=== PATIENT | female | born 1980 | race Caucasian/White ===

== ENCOUNTER 2020-01-24 14:27 | Emergency (ER) | payer SELFPAY ==
--- NOTE | 2020-01-24 15:20 | XRAY Report ---
PROCEDURE: Hand 3 View RT INDICATIONS: Trauma TECHNIQUE: 3 views of the hand(s) acquired. COMPARISON: None FINDINGS: Bones: No fractures or dislocations. No suspicious bony lesions. Soft tissues: No suspicious soft tissue calcifications. IMPRESSION: No fracture or other acute finding. Reviewed by: Danial Carbone MD on 01/24/2020 3:18 PM PDT Approved by: Danial Carbone MD on 01/24/2020 3:18 PM PDT Station ID: [id number]
--- NOTE | 2020-01-24 15:31 | ED Physician Documentation ---
History of Present Illness - Stated complaint Stated Complaint: RIGHT HAND INJ - Chief complaint Chief Complaint: Trauma Ext - History obtained from History obtained from: Patient - Additonal information Additional information: Patient comes emergency department complaining of right hand pain after falling a few days ago and landing on her hand. Patient states that she developed swelling and bruising in that her thenar eminence area has been hurting, and she wanted to make sure that there is no more serious injury. Patient denies any other injuries. She states that her wrist does not really hurt and that it is more the area of the hand. No history of surgical procedure to the wrist or hand. No other complaints at this time. Review of Systems Ten Systems: 10 systems reviewed and negative Constitutional: reports: Reviewed and negative Eyes: reports: Reviewed and negative Ears: reports: Reviewed and negative Nose: reports: Reviewed and negative Throat: reports: Reviewed and negative Cardiac: reports: Reviewed and negative Respiratory: reports: Reviewed and negative GI: reports: Reviewed and negative : reports: Reviewed and negative Skin: reports: Reviewed and negative Musculoskeletal: reports: Extremity pain, Extremity swelling Neurologic: reports: Reviewed and negative Psychiatric: reports: Reviewed and negative Endocrine: reports: Reviewed and negative Immunocompromised: reports: Reviewed and negative PD PAST MEDICAL HISTORY - Past Surgical History Past Surgical History: No - Present Medications Home Medications: Ambulatory Orders Medication Instructions Recorded Confirmed Cyclobenzaprine [Flexeril] 10 mg PO TID PRN #20 tablet 06/22/15 HYDROcod/ACETAM 5/325 [[place] 5/325] 1 - 2 ea PO Q6H PRN #15 tablet 06/22/15 - Allergies Allergies/Adverse Reactions: Allergies Allergy/AdvReac Type Severity Reaction Status Date / Time No Known Drug Allergies Allergy Verified 01/24/20 14:46 - Social History Does the pt smoke?: No Smoking Status: Never smoker Does the pt drink ETOH?: Yes Does the pt have substance abuse?: No PD ED PE NORMAL - Vitals Vital signs reviewed: Yes - General General: Alert and oriented X 3, No acute distress - HEENT HEENT: Atraumatic, PERRL, EOMI, Moist mucous membranes - Neck Neck: Supple, no meningeal sign - Cardiac Cardiac: Strong equal pulses - Respiratory Respiratory: No respiratory distress - Derm Derm: Warm and dry, Other - Extremities Extremities: No deformity, Other (Patient has mild edema and contusion of her right thenar eminence, with tenderness palpation. No dorsal tenderness. No tenderness of the thumb itself. No tenderness over the carpal bones of the wrist. No snuffbox tenderness). No: Normal ROM s pain (Patient is able to move her thumb but complains of pain in the right thenar eminence.) - Neuro Neuro: Alert and oriented X 3 - Psych Psych: Normal mood, Normal affect Results - Vitals Vitals: Vital Signs - 24 hr 01/24/20 14:43 Temperature 36.7 C Heart Rate 81 Respiratory 16 Rate Blood Pressure 150/101 H O2 Saturation 97 Oxygen O2 Source Simple Mask - Rads (name of study) R hand xr Radiology: Final report received, EMP read indepedently, See rad report (neg) PD MEDICAL DECISION MAKING - ED course Complexity details: reviewed results, re-evaluated patient, considered differential, d/w patient ED course: Patient was worked up with a right hand x-ray, which was found to be negative. The patient was offered an Alberto wrap for support. We have discussed home management of symptoms as well as usual indications for return. Departure - Departure Disposition: 01 Home, Self Care Clinical Impression: Hand sprain Qualifiers: Encounter type: initial encounter Laterality: right Qualified Code(s): S63.91XA - Sprain of unspecified part of right wrist and hand, initial encounter Condition: Stable Instructions: ED Sprain Hand Comments: Your x-ray shows no broken bones. Most likely, you have sprained your hand at the base of your thumb. You have been placed in an Alberto wrap for extra support and should use ice and elevation to help with the discomfort. Auqf-eii-pomoexu medicines such as ibuprofen and Tylenol are also helpful. You may follow-up with your primary care physician as needed.
[2020-01-24 15:52] VITALS: BP 148/98
== END 2020-01-24 15:51 | disposition home or self-care (01) ==
LOC: ED 14:27
DX: S63.91XA Sprain of unspecified part of right wrist and hand, initial encounter (principal); S60.221A Contusion of right hand, initial encounter; W18.30XA Fall on same level, unspecified, initial encounter
CPT/HCPCS: 99282; 99283

== ENCOUNTER 2022-04-15 08:35 | Emergency (ER) | payer OTHER ==
[2022-04-15 08:53] LABS: BASOPHILS # (AUTO) 0.1 10^3/uL (0.0-0.1); BASOPHILS % (AUTO) 1.1 %; EOSINOPHILS # (AUTO) 0.2 10^3/uL (0.0-0.7); EOSINOPHILS % (AUTO) 2.8 %; HCT - HEMATOCRIT 42.3 % (37.0-47.0); HGB - HEMOGLOBIN 15.1 g/dL (12.0-16.0); LYMPHOCYTES % (AUTO) 17.6 %; MEAN CORPUSCULAR HEMOGLOBIN 32.1 pg (27.0-31.0); MEAN CORPUSCULAR HGB CONC 35.7 g/dL (32.0-36.0); MEAN PLATELET VOLUME 10.3 fL (7.9-10.8); MONOCYTES # (AUTO) 0.4 10^3/uL (0.0-1.0); MONOCYTES % (AUTO) 7.7 %; NEUTROPHILS # (AUTO) 3.8 10^3/uL (1.5-6.6); NEUTROPHILS % (AUTO) 70.6 %; PLT - PLATELET COUNT 178 10^3/uL (130-450); RED CELL DISTRIBUTION WIDTH 12.4 % (12.0-15.0); WHITE BLOOD COUNT 5.4 x10^3/uL (4.8-10.8)
[2022-04-15 09:06] LABS: ALBUMIN 4.1 g/dL (3.2-5.5); ALBUMIN/GLOBULIN RATIO 1.2 (1.0-2.2); BILIRUBIN,TOTAL 1.5 mg/dL (0.2-1.0); CALCIUM 8.8 mg/dL (8.5-10.3); CREATININE 0.8 mg/dL (0.4-1.0); TOTAL PROTEIN 7.6 g/dL (6.7-8.2)
[2022-04-15 09:43] LABS: GLUCOSE, URINE (UA) NEGATIVE (NEGATIVE); KETONES,URINE (UA) 15 mg/dL (NEGATIVE); LEUKOCYTE ESTERASE, URINE NEGATIVE (NEGATIVE); NITRITE,URINE NEGATIVE (NEGATIVE); OCCULT BLOOD,URINE NEGATIVE (NEGATIVE); PH,URINE 7.5 PH (5.0-7.5); PROTEIN,URINE NEGATIVE (NEGATIVE); UROBILINOGEN,URINE 1 (NORMAL) E.U./dL (NORMAL)
[2022-04-15 09:44] LABS: CLARITY,URINE CLEAR (CLEAR)
[2022-04-15 09:45] LABS: BILIRUBIN,URINE NEGATIVE (NEGATIVE); HCG UR QUAL NEGATIVE; ICTOTEST,URINE NEGATIVE
[2022-04-15] MEDS ORDERED: ONDANSETRON 4 MG/2 ML VIAL IVP STA (11:31)
[2022-04-15] MEDS ORDERED: SODIUM CHLORIDE 0.9% 1,000 ML IV STA (11:31)
[2022-04-15] MEDS ORDERED: HYDROmorphone 1 MG/ML CARPUJECT IVP STA (11:31)
--- NOTE | 2022-04-15 11:33 | ED Physician Documentation ---
History of Present Illness - Stated complaint Stated Complaint: ABD PX - Chief complaint Chief Complaint: Abd Pain - Additonal information Additional information: 41-year-old female presents emergency department for evaluation of 36 hours pe rsistent right upper quadrant abdominal pain as well as nausea and vomiting. Reports that about 1 month ago she was seen at a hospital [facility] for similar and found to have gallstones. She was told to follow-up with a surgeon as an outpatient. She subsequently moved to the [place] and is not yet established with a primary provider nor a surgeon. Symptoms began 36 hours ago. Persistent right upper quadrant abdominal pain. Has been unable to keep any food or liquids down now for 24 hours. Denies fevers. No melena hematochezia. She does have a history of moderate alcohol use typically drinking about 1/5 of liquor a week. Denies tobacco use. No pertinent past surgical history. Review of Systems Constitutional: denies: Fever, Chills Throat: reports: Reviewed and negative Cardiac: reports: Reviewed and negative Respiratory: reports: Reviewed and negative GI: reports: Abdominal Pain, Nausea, Vomiting. denies: Diarrhea, Hematemesis, Bloody / black stool : reports: Reviewed and negative Skin: reports: Reviewed and negative PD PAST MEDICAL HISTORY - Past Surgical History Past Surgical History: No - Present Medications Home Medications: Ambulatory Orders Medication Instructions Recorded Confirmed HYDROcod/ACETAM 5/325 [[place] 5/325] 1 tablet PO BID PRN #10 tablet 04/15/22 Ibuprofen [Motrin] 1 tablet PO Q8H PRN 04/15/22 04/15/22 Ondansetron Odt [Zofran] 4 mg TL Q6H PRN #10 tablet 04/15/22 - Allergies Allergies/Adverse Reactions: Allergies Allergy/AdvReac Type Severity Reaction Status Date / Time No Known Drug Allergies Allergy Verified 04/15/22 08:40 - Social History Does the pt smoke?: No Smoking Status: Never smoker Does the pt drink ETOH?: Yes Does the pt have substance abuse?: No PD ED PE EXPANDED - General General: Alert, In Pain, Other (Morbidly obese) - Cardiac Cardiac: Regular Rate, Radial strong equal, Pedal strong equal, Cap refill < 2 sec - Respiratory Respiratory: Clear to ausultation rick. No: Distress, Labored - Abdomen Abdomen: Normal Bowel sounds, Tender to palpation, Rebound, Guarding (equivocal mcburney's), RUQ - Back Back: Normal exam - Derm Derm: Normal color, Warm and dry. No: Rash - Extremities Extremities: Normal. No: Deformity, Tenderness - Neuro Neuro: Alert and Oriented X 3, CNII-XII intact - GCS Eye Opening: Spontaneous Motor: Obeys Commands Verbal: Oriented Total: 15 Results - Vitals Vitals: Vital Signs - 24 hr 04/15/22 04/15/22 08:38 11:42 Temperature 36.5 C Heart Rate 97 82 Respiratory 16 16 Rate Blood Pressure 170/106 H O2 Saturation 97 99 Oxygen O2 Source Room air - Labs Labs: Laboratory Tests 04/15/22 04/15/22 04/15/22 08:50 08:50 09:35 WBC 5.4 RBC 4.70 Hgb 15.1 Hct 42.3 MCV 90.0 MCH 32.1 H MCHC 35.7 RDW 12.4 Plt Count 178 MPV 10.3 Neut # (Auto) 3.8 Lymph # (Auto) 1.0 L Alfalfa # (Auto) 0.4 Eos # (Auto) 0.2 Baso # (Auto) 0.1 Absolute Nucleated RBC 0.00 Nucleated RBC % 0.0 Sodium 137 Potassium 4.0 Chloride 104 Carbon Dioxide 24 Anion Gap 9.0 BUN 20 Creatinine 0.8 Estimated GFR (MDRD) 78 L Glucose 113 H Calcium 8.8 Total Bilirubin 1.5 H AST 53 H ALT 69 H Alkaline Phosphatase 62 Total Protein 7.6 Albumin 4.1 Globulin 3.5 Albumin/Globulin Ratio 1.2 Lipase 30 Urine Color DARK YELLOW Urine Clarity CLEAR Urine pH 7.5 Ur Specific [place] 1.010 Urine Protein NEGATIVE Urine Glucose (UA) NEGATIVE Urine Ketones 15 H Urine Occult Blood NEGATIVE Urine Nitrite NEGATIVE Urine Bilirubin NEGATIVE Urine Urobilinogen 1 (NORMAL) Ur Leukocyte Esterase NEGATIVE Ur Microscopic Review NOT INDICATED Urine Culture Comments NOT INDICATED Urine HCG, Qual 04/15/22 09:35 WBC RBC Hgb Hct MCV MCH MCHC RDW Plt Count MPV Neut # (Auto) Lymph # (Auto) Alfalfa # (Auto) Eos # (Auto) Baso # (Auto) Absolute Nucleated RBC Nucleated RBC % Sodium Potassium Chloride Carbon Dioxide Anion Gap BUN Creatinine Estimated GFR (MDRD) Glucose Calcium Total Bilirubin AST ALT Alkaline Phosphatase Total Protein Albumin Globulin Albumin/Globulin Ratio Lipase Urine Color Urine Clarity Urine pH Ur Specific [place] Urine Protein Urine Glucose (UA) Urine Ketones Urine Occult Blood Urine Nitrite Urine Bilirubin Urine Urobilinogen Ur Leukocyte Esterase Ur Microscopic Review Urine Culture Comments Urine HCG, Qual NEGATIVE - Rads (name of study) abd US Radiology: Final report received (Cholelithiasis. Positive sonographic Rawls's without significant gallbladder wall thickening. May indicate developing cholecystitis. Hepatic steatosis. Gallbladder wall adenomyomatosis) Ct abd Radiology: Final report received (Cholelithiasis. Normal appendix. No evidence of urinary tract calcification or obstruction. Hepatic steatosis.) PD MEDICAL DECISION MAKING - ED course Complexity details: reviewed results, re-evaluated patient, considered differential, d/w patient, d/w oracle distribution consultant (Cecy Gille Surg) ED course: 41-year-old female presents emergency department for evaluation of persistent right upper quadrant abdominal pain with nausea and vomiting. Symptoms began more than a month ago was originally seen at an outlying hospital in the [facility]. Was told that she had gallstones and needed to follow-up with the surgeons as an outpatient. Over the last month she has had intermittent pain but this episode began about 24 hours ago. She has had 2 episodes of vomiting. No diarrhea. No fevers. Labs obtained today in the ER showed no leukocytosis. Her liver function test show a mildly elevated T bili at 1.5. Her AST and ALT are also mildly elevated in the 50s and 60s respectively. On exam she did have an equivocal Rawls's. Abdominal ultrasound showed Cielo lithiasis without secondary findings to suggest acute cholecystitis. CT of the abdomen showed similar. On exam the patient's symptoms are improved. I briefly discussed this case with our surgeon on-call. Given that the patient does not have findings of acute cholecystitis such as gallbladder wall thickening, pericholecystic fluid, fever or leukocytosis the decision is made to have her followed as an outpatient. She is advised a no fat no dairy diet. A limited prescription for analgesia and Zofran has been sent to the pharmacy. Emergent return precautions were discussed for worsening symptoms Departure - Departure Disposition: 01 Home, Self Care Clinical Impression: Abnormal LFTs (liver function tests), Adenomyomatosis of gallbladder Cholelithiasis Qualifiers: Cholelithiasis location: gallbladder Cholecystitis presence: without cholecystitis Biliary obstruction: without biliary obstruction Qualified Code(s): K80.20 - Calculus of gallbladder without cholecystitis without obstruction Condition: Stable Record reviewed to determine appropriate education?: Yes Instructions: ED Abdominal Pain Gallstone Poss Follow-Up: Cecilia Diaz MD [Provider Admit Priv/Credential] - Prescriptions: HYDROcod/ACETAM 5/325 [[place] 5/325] 1 tablet PO BID PRN #10 tablet PRN Reason: Pain Ondansetron Odt [Zofran] 4 mg TL Q6H PRN #10 tablet PRN Reason: Nausea / Vomiting Comments: Radha you are seen today in the emergency department for pain in your upper abdomen. The CT of your belly as well as the ultrasound of your abdomen do show that you have gallstones. However there are no findings to suggest acute cholecystitis which is a clinical condition in which the gallbladder typically needs to be removed. It is very important you follow-up with a surgeon as an outpatient. I have given you the name and phone number of Dr. Sales. You will need a referral to see her in office. Please work closely with a primary care doctor as well as your insurance to get this referral established. It is very important that you follow a close diet for your gallstones. In general you should avoid any fats whatsoever. No dairy, no cheese, no salad dressings or oils. You can eat chicken that is boiled or broiled only. No chicken skin, no fats or red meat. In the short-term I am sending a prescription for limited amount of hydrocodone as well as Zofran to the [facility] in [place]. You will likely need to have your gallbladder removed in the long-term. However this is best done when the gallbladder is not inflamed. If at any point you find that your pain is worsening, you have fevers, uncontrolled vomiting then you should return immediately to the emergency department.
--- NOTE | 2022-04-15 12:23 | Ultrasound Report ---
PROCEDURE: Abdomen Limited INDICATIONS: RUQ abd pain; n/v TECHNIQUE: Real-time focused scanning was performed of the abdomen, with image documentation. COMPARISON: None FINDINGS: Liver is enlarged measuring 18.3 cm and demonstrates diffusely increased echogenicity. Multiple calcu li within the gallbladder lumen. Positive sonographic Rawls's sign is present. Gallbladder wall padma ures 2 mm diameter. Common tail artifact within the gallbladder wall present. No biliary ductal dilat ation. Pancreas is within normal limits. Spleen and right kidney are within normal limits. Aorta and IVC are within normal limits. IMPRESSION: 1. Cholelithiasis. 2. Positive sonographic Rawls's sign without significant gallbladder wall thickening. Findings may i ndicate developing cholecystitis. Clinical correlation recommended. 3. Hepatic steatosis. 4. Gallbladder wall adenomyomatosis. Reviewed by: Mitesh Bermudez MD on 04/15/2022 12:21 PM PDT Approved by: Mitesh Bermudez MD on 04/15/2022 12:21 PM PDT Station ID: [id number]
--- NOTE | 2022-04-15 12:44 | CT Report ---
PROCEDURE: Abdomen/Pelvis WO INDICATIONS: RUQ abd pain; hx of gall stones TECHNIQUE: Noncontrast 5 mm thick sections acquired from the diaphragms to the symphysis. 5 mm coronal and sagi ttal reformats were then performed. For radiation dose reduction, the following was used: automated exposure control, adjustment of mA and/or kV according to patient size. COMPARISON: None. FINDINGS: Image quality: Excellent. ABDOMEN: Lung bases: Lung bases are clear. Heart size is normal. Solid organs: Liver is enlarged and demonstrates diffusely decreased density without focal mass by n oncontrast imaging. Spleen is within normal limits. Gallbladder demonstrates calculi within its lumen Pancreas is normal in contours. No adrenal nodules. Kidneys are normal in size, without hydroneph rosis or nephrolithiasis. Peritoneum and bowel: Small hiatal hernia. Unenhanced bowel loops demonstrate normal wall thickness a nd caliber. No free fluid or air. Normal appendix. Nodes and vessels: No retroperitoneal or mesenteric adenopathy by size criteria. Aorta and inferior vena cava are normal in caliber. Miscellaneous: No ventral hernias. PELVIS: Genitourinary: Bladder wall thickness is normal. Miscellaneous: No inguinal hernias or adenopathy. Bones: No suspicious bony lesions. No vertebral body compression fractures. IMPRESSION: 1. Cholelithiasis. 2. Normal appendix. 3. No evidence of urinary tract calcification, nor obstruction. 4. Hepatic steatosis. Reviewed by: Mitesh Bermudez MD on 04/15/2022 12:43 PM PDT Approved by: Mitesh Bermudez MD on 04/15/2022 12:43 PM PDT Station ID: [id number]
[2022-04-15 13:15] VITALS: BP 157/102
== END 2022-04-15 13:46 | disposition home or self-care (01) ==
LOC: ED 08:35
DX: K80.20 Calculus of gallbladder without cholecystitis without obstruction (principal); R94.5 Abnormal results of liver function studies
CPT/HCPCS: 36415; 74176; 76705; 80053; 81003; 81025; 83690; 85025; 96361; 96374; 96375; 99284; J1170; 81001; 87086

== ENCOUNTER 2022-08-20 11:11 | Outpatient (CLI) | payer OTHER ==
--- NOTE | 2022-08-30 09:50 | Mammography Report ---
BILATERAL DIGITAL SCREENING MAMMOGRAM 3D/2D: 08/20/2022 CLINICAL: Routine screening. No prior exams were available for comparison. There are scattered areas of fibroglandular density in both breasts (category b / 25%-50% glandular t issue). No significant masses, calcifications, or other findings are seen in either breast. IMPRESSION: NEGATIVE There is no mammographic evidence of malignancy. A 1 year screening mammogram is recommended. Based on the Tyrer Cuzick model (a risk assessment model) the patients lifetime risk is 12.6% and he r 10 year risk is 2.0%. According to the ACR, ACS, and NCCN guidelines, an annual breast MRI exam bharat ng with mammogram is recommended if the patients lifetime risk is 20% or greater. This exam was interpreted at Station ID: [id number]. NOTE: For mammograms, a report in lay terms will be sent to the patient. Approximately 15% of breast malignancies will not be visualized mammographically. In the management of a palpable breast mass, a negative mammogram must not discourage biopsy of a clinically suspicious lesion. Electronically Signed By: Danial Carbone M.D., jr/bethel:08/27/2022 16:05:42 ACR BI-RADS Category 1: Negative 3341F PARENCHYMAL PATTERN: (A) - The breast(s) demonstrate(s) scattered fibroglandular densities. BI-RADS CATEGORY: (1) - 1 RECOMMENDATION: (ANNUAL) - Recommend routine annual screening mammography. [id number] 1 year screening LATERALITY: (B)
== END 2022-08-20 11:12 | disposition home or self-care (01) ==
LOC: DI 11:11
DX: Z12.31 Encounter for screening mammogram for malignant neoplasm of breast (principal)

== ENCOUNTER 2023-03-17 11:18 | Day surgery (SDC) | payer OTHER ==
[2023-03-17] MEDS ORDERED: LACTATED RINGERS 1,000 ML IV ONE ×2 (11:24→16:46)
[2023-03-17] MEDS ORDERED: ceFAZolin 2 GM VIAL ONE (11:33)
[2023-03-17 11:49] LABS: HCG UR QUAL NEGATIVE
[2023-03-17] MEDS ORDERED: MIDAZOLAM 2 MG/2 ML VIAL ONE (12:17)
[2023-03-17] MEDS ORDERED: ROCURONIUM 50 MG/5 ML VIAL ONE ×2 (12:17→14:25)
[2023-03-17] MEDS ORDERED: fentaNYL 100 MCG/2 ML VIAL ONE ×4 (12:17→16:07)
[2023-03-17] MEDS ORDERED: PROPOFOL 200 MG/20 ML VIAL IVP ONE (12:17)
[2023-03-17] MEDS ORDERED: LIDOCAINE-PF 2% 10 ML AMP SUBQ ONE (12:17)
--- NOTE | 2023-03-17 12:50 | ANESTHESIA ---
Pre-Anesthesia VS, & Labs - Diagnosis chronic cholelithiasis - Procedure laparoscopic cholecystectomy Vital Signs: Temp Pulse Resp BP Pulse Ox O2 Flow Rate 36.1 C L 93 16 140/96 H 94 03/17/23 11:34 03/17/23 11:34 03/17/23 11:34 03/17/23 11:34 03/17/23 11:34 Height: 5 ft 8 in Weight (kg): 138 kg Body Mass Index: 46.2 BMI Classification: Morbidly Obese - NPO >8 hours - Is Patient ?: No - Lab Results Lab results reviewed: Yes Home Medications and Allergies Home Medications: Ambulatory Orders Acetaminophen [Tylenol] 650 mg PO Q6H PRN 03/09/23 Ibuprofen [Motrin] 600 mg PO Q6H PRN 03/09/23 Acetaminophen [Tylenol] 650 mg PO Q6H PRN 03/09/23 Ibuprofen [Motrin] 600 mg PO Q6H PRN 03/09/23 Allergies/Adverse Reactions: Allergies Allergy/AdvReac Type Severity Reaction Status Date / Time No Known Drug Allergies Allergy Verified 04/15/22 08:40 Anes History & Medical History - Anesthetic History Anesthesia Complications: reports: No previous complications Family history of Anesthesia Complications: Denies Family history of Malignant Hyperthermia: Denies - Medical History Cardiovascular: reports: None Pulmonary: reports: None Gastrointestinal: reports: Cholelithiasis Urinary: reports: None Neuro: reports: None Musculoskeletal: reports: None Endocrine/Autoimmune: reports: None Blood Disorders: reports: None Skin: reports: None Smoking Status: Never smoker Psychosocial: reports: No issues indicated, Cannabis (gummies daily) History of Cancer?: No Exam General: Alert, Oriented x3, Cooperative Dental: Dentures full Upper, Other (no teeth at bottom) Mouth Openin Fingerbreadth Neck Mobility: Normal Mallampati classification: II Thyromental Distance: 4-6 cm Respiratory: Lungs clear, Normal breath sounds, No respiratory distress Cardiovascular: Regular rate Neurological: Normal speech Mental/Cognitive Status: Alert/Oriented X3, Normal for patient Cognitive Status: Within normal limits Plan Anesthesia Type: General Consent for Procedure(s) Verified and Reviewed: Yes Code Status: Attempt Resuscitation ASA classification: 2-Mild systemic disease Is this case an emergency?: No
[2023-03-17] MEDS ORDERED: BUPIVACAINE 0.25% PF 30 ML VIAL ONE ×2 (12:56→14:18)
[2023-03-17] MEDS ORDERED: MORPHINE 2 MG/ML CARPUJECT IVP PRN (13:02)
[2023-03-17] MEDS ORDERED: ATROPINE ABBOJECT 1 MG/10 ML SYRINGE IVP PRN (13:02)
[2023-03-17] MEDS ORDERED: HYDROmorphone 0.5 MG/0.5 ML SYRINGE IVP PRN (13:02)
[2023-03-17] MEDS ORDERED: METOCLOPRAMIDE 10 MG/2 ML VIAL IVP PRN (13:02)
[2023-03-17] MEDS ORDERED: NALOXONE 0.4 MG/ML VIAL IVP PRN (13:02)
[2023-03-17] MEDS ORDERED: ePHEDrine 50 MG/ML VIAL IVP PRN (13:02)
[2023-03-17] MEDS ORDERED: ONDANSETRON 4 MG/2 ML VIAL IVP PRN ×2 (13:02→15:56)
--- NOTE | 2023-03-17 13:48 | HISTORY & PHYSICAL EXAMINATION ---
Chief Complaint - Chief Complaint Chief Complaint: upper abdominal pain History of Present Illness - History Obtained From Records Reviewed: yes History obtained from: pt Exam Limitations: none - History of Present Illness HPI Comment/Other: upper abdominal pain. getting worse. 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 : reports: None HEENT: reports: Chronic vision loss Psych: reports: None Musculoskeletal: reports: None Derm: reports: None MRSA Hx?: No Meds/Allgy - Home Medications Home Medications: Ambulatory Orders Medication Instructions Recorded Confirmed Acetaminophen [Tylenol] 650 mg PO Q6H PRN 03/09/23 03/09/23 Ibuprofen [Motrin] 600 mg PO Q6H PRN 03/09/23 03/09/23 - Allergies Allergies/Adverse Reactions: Allergies Allergy/AdvReac Type Severity Reaction Status Date / Time No Known Drug Allergies Allergy Verified 04/15/22 08:40 Review of Systems - Other Findings Other Findings: 10 pt ros as above otherwise unremarkable Exam - Vital Signs Vital Signs: Vital Signs x48h Temp Pulse Resp BP Pulse Ox 03/17/23 11:34 36.1 C L 93 16 140/96 H 94 - Physical Exam General Appearance: positive: No acute distress, Alert Eyes Bilateral: positive: PERRL, EOMI ENT: positive: No signs of dehydration Neck: positive: No JVD, Trachea midline Respiratory: positive: No respiratory distress Cardiovascular: positive: Regular rate & rhythm Abdomen: positive: Non-tender, No distention Neurologic/Psychiatric: positive: Oriented x3 Conclusion/Plan - Problem List (1) Chronic cholecystitis Conclusion/Plan: plan lap yoly. parq held and consent obtained - Lab Results Lab results reviewed: Yes
[2023-03-17] MEDS ORDERED: LACTATED RINGERS 1,000 ML IV SCH (14:00)
[2023-03-17] MEDS ORDERED: BUPIVACAINE 0.25% PF 30 ML VIAL SUBQ ONE (14:04)
[2023-03-17] MEDS ORDERED: ONDANSETRON 4 MG/2 ML VIAL ONE (14:08)
[2023-03-17] MEDS ORDERED: DEXAMETHASONE 4 MG/ML VIAL ONE (14:08)
[2023-03-17] MEDS ORDERED: HYDROmorphone 1 MG/ML CARPUJECT ONE ×2 (14:47→15:54)
[2023-03-17] MEDS ORDERED: SUGAMMADEX 200 MG/2 ML VIAL IVP ONE (14:51)
[2023-03-17] MEDS ORDERED: KETOROLAC 30 MG/ML VIAL ONE (15:10)
[2023-03-17] MEDS ORDERED: ACETAMINOPHEN 1,000 MG/100 ML 1,000 MG/100 ML BAG IV ONE (15:20)
[2023-03-17] MEDS ORDERED: LACTATED RINGERS 600 ML IV ONE (15:39)
[2023-03-17] MEDS ORDERED: HYDROcod/ACETAM 5/325 MG TABLET PO PRN (15:56)
[2023-03-17] MEDS: fentaNYL 100 MCG/2 ML VIAL IVP PRN ×2 (16:02→16:14)
--- NOTE | 2023-03-17 16:02 | OPERATIVE REPORT ---
Operative Report - General Procedure Date: 03/17/23 Planned Procedure: lap yoly Pre-Op Diagnosis: chronic cholecystitis Procedure Performed: lap yoly Post Op Diagnosis: chronic cholecystitis - Procedure Note Primary Surgeon: misa puente Anesthesia Technique: General ET tube, Local Pathology: gallbladder Estimated Blood Loss (mL): 10 Drain/Tube Type: Other (none) Indications: gallbladder pain Findings: as above. normal common hepatic duct seen duct of luschka present Complications: none - Other Other Information/Narrative: The patient was properly identified, brought to the operating room and placed in supine position. Sequential compression devices were placed. General endotracheal anesthesia was induced. The patient was prepped and draped in a sterile fashion and given preoperative antibiotics. Local anesthetic was given to incision areas. An incision was made in the periumbilical area. Dissection proceeded down to fascia. The fascia was incised lifted upwards and abdomen entered with a Veress needle. CO2 was insufflated to a pressure of 15. An 11 mm trocar followed by a 30 degree scope was placed. There was no evidence of in jury from Veress needle or trocar placement. Under direct vision 2 5 mm trochars were placed in the right upper quadrant and an 11 mm trocar was placed in the epigastrium. Body of the gallbladder was retracted anterior. Lateral attachments were partially taken down further mobilizing the gallbladder more anterior and away from the duodenum. The infundibulum of the gallbladder was then retracted right lateral and caudad. With minimal use of cautery a large bare cystic plate area or window was carefully created. The cystic duct was inspected from right lateral and left lateral positions. [] The cystic duct was then clipped at the gallbladder and 3 times slightly proximal and sharply divided. The cystic artery was clipped at the gallbladder and then 2 times slightly proximal and sharply divided. The duct of Luschka was evident. It was clipped close to the infundibulum of the gallbladder. The duct of Luschka went right lateral of the gallbladder two [address] to the fundus. In this location there was a superficial less than 1 mm bile duct that went into the liver edge. These were clipped. The gallbladder was mobilized off from the bed of the liver with hook cautery. The gallbladder was placed in Endo Catch bag and brought out through the epigastric trocar site. Hemostasis was assured. Trochars were removed under direct vision. Fascia at the larger trocar sites was closed with [id number] are running 0 Vicryl suture. Subcutaneous tissue was irrigated and skin closed with interrupted 4-0 Monocryl. Dressings were applied. Patient tolerated the procedure well was awakened and brought to recovery in good condition.
--- NOTE | 2023-03-17 16:17 | ANESTHESIA POST OP EVALUATION ---
Anesthesia Post Eval - Post Anesthesia Eval Vitals: Last Vital Signs Temp 36.0 C L 03/17/23 16:10 Pulse 82 03/17/23 16:10 Resp 16 03/17/23 16:10 BP 128/82 H 03/17/23 16:10 Pulse Ox 95 03/17/23 16:10 O2 Flow Rate CV Function Including HR & BP: Stable Pain Control: Satisfactory Nausea & Vomiting: Negative Mental Status: Baseline Respiratory Status: Airway Patent Hydration Status: Satisfactory Anesthesia Complications: None
[2023-03-17 19:06] VITALS: BP 154/93; O2SAT 97
== END 2023-03-17 19:20 | disposition home or self-care (01) ==
LOC: SDS 11:18 → MS2 16:22 → SDS 19:20
PROVIDERS: ATTEND Surgery
PROC: 0FT44ZZ Resection of Gallbladder, Percutaneous Endoscopic Approach (ICD-10-PCS; principal; 2023-03-17 13:30)
DX: K80.10 Calculus of gallbladder with chronic cholecystitis without obstruction (principal); E66.01 Morbid (severe) obesity due to excess calories; Z32.02 Encounter for pregnancy test, result negative; Z68.42 Body mass index [BMI] 45.0-49.9, adult
CPT/HCPCS: 47562; 81025; A9270; J0131; J1170; J7120

== ENCOUNTER 2023-03-26 20:47 | Emergency (ER) | payer OTHER ==
[2023-03-26] MEDS ORDERED: SODIUM CHLORIDE 0.9% 1,000 ML IV STA (21:18)
[2023-03-26] MEDS ORDERED: ONDANSETRON 4 MG/2 ML VIAL IVP STA (21:18)
[2023-03-26] MEDS ORDERED: MORPHINE 2 MG/ML CARPUJECT IVP STA (21:18)
--- NOTE | 2023-03-26 21:18 | ED Physician Documentation ---
PD HPI ABD PAIN - Stated complaint Stated Complaint: ABD PX/UNABLE GO TO RESTROOM - Chief complaint Chief Complaint: Abd Pain - History obtained from History obtained from: Patient - Additional information Additional information: 42-year-old female presents by private vehicle from home for midepigastric abdominal pain and constipation. Patient is postop day 10 from laparoscopic cholecystectomy. She states that over the last 5 days she has only been able to pass small amounts of stools. She does not think that she passed any flatus today. She has been taking MiraLAX and milk of magnesia without bowel movement. Pain was worse today with nausea and they decided to come to the emergency department. Postop check with surgery not for 2 more weeks. Review of Systems Constitutional: denies: Fever, Chills GI: reports: Abdominal Pain, Nausea, Vomiting, Constipation. denies: Diarrhea : denies: Dysuria, Frequency, Hesitancy Musculoskeletal: denies: Neck pain, Back pain, Extremity pain Neurologic: denies: Generalized weakness, Numbness PD PAST MEDICAL HISTORY - Past Medical History Cardiovascular: None Respiratory: None Neuro: None Endocrine/Autoimmune: None GI: Cholelithiasis [employer] P[employer] WORKER: None : None HEENT: Chronic vision loss Psych: None Musculoskeletal: None Derm: None - Past Surgical History Past Surgical History: Yes General: Cholecystectomy - Present Medications Home Medications: Ambulatory Orders Medication Instructions Recorded Confirmed No Known Home Medications 03/26/23 03/26/23 - Allergies Allergies/Adverse Reactions: Allergies Allergy/AdvReac Type Severity Reaction Status Date / Time No Known Drug Allergies Allergy Verified 03/26/23 20:50 - Social History Does the pt smoke?: No Smoking Status: Never smoker Does the pt drink ETOH?: Yes Does the pt have substance abuse?: No - Immunizations Immunizations are current?: No Immunizations: Other immun not current PD ED PE NORMAL - Vitals Vital signs reviewed: Yes - General General: Alert and oriented X 3, Well developed/nourished, Other (uncomfortable. In pain. Obese) - HEENT HEENT: Atraumatic - Cardiac Cardiac: RRR, No murmur, Strong equal pulses - Abdomen Abdomen: Soft, Non distended, Other (midepigastric tenderness to deep palpation. 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, No motor deficit, Normal speech - Psych Psych: Normal mood, Normal affect Results - Vitals Vitals: Vital Signs - 24 hr 03/26/23 03/26/23 03/26/23 20:50 21:41 23:06 Temperature 36.5 C Heart Rate 110 H 94 89 Respiratory 24 21 16 Rate Blood Pressure 170/90 H 108/80 134/82 H O2 Saturation 98 92 96 03/27/23 00:05 Temperature Heart Rate 89 Respiratory 16 Rate Blood Pressure 120/86 H O2 Saturation 98 Oxygen O2 Source Room air - Labs Labs: Laboratory Tests 03/26/23 03/26/23 03/26/23 21:32 21:32 21:32 WBC 7.2 RBC 4.56 Hgb 14.1 Hct 41.2 MCV 90.4 MCH 30.9 MCHC 34.2 RDW 12.3 Plt Count 272 MPV 10.5 Neut # (Auto) 5.2 Lymph # (Auto) 1.3 L [place] # (Auto) 0.6 Eos # (Auto) 0.1 Baso # (Auto) 0.0 Absolute Nucleated RBC 0.00 Nucleated RBC % 0.0 Sodium 137 Potassium 3.5 Chloride 105 Carbon Dioxide 23 Anion Gap 9.0 BUN 12 Creatinine 0.8 Estimated GFR (MDRD) 78 L Glucose 117 H Calcium 8.7 Total Bilirubin 0.2 AST 14 ALT 18 Alkaline Phosphatase 70 Total Protein 7.5 Albumin 3.8 Globulin 3.7 Albumin/Globulin Ratio 1.0 Lipase 35 Serum HCG, Qual NEGATIVE PD Medical Decision Making - ED course Complexity details: reviewed old records, reviewed results, re-evaluated patient, considered differential, d/w patient, d/w family ED course: Postoperative midepigastric abdominal pain with constipation. Abdomen is soft, surgical wounds appear to be healing well, however she is significantly tender in the midepigastric region. Antiemetics, pain medications, fluids ordered. Will order CT scan of the abdomen and pelvis. Laboratory work is unremarkable. Pain improved with morphine. CT imaging pending. CT imaging negative for acute findings. No explanation for patient's symptoms. Patient reassessed, resting comfortably in bed. Patient informed of all lab and imaging results. Patient was counseled to increase her MiraLAX dosage and she may also use senna or Dulcolax. She was counseled to call her surgeon's office to see if she can expedite her follow-up appointment. ED return precautions discussed. Patient expressed understanding of plan and is in agreement at this time. All questions answered at the time of discharge. Departure - Departure Disposition: 01 Home, Self Care Clinical Impression: Abdominal pain Qualifiers: Abdominal location: upper abdomen, unspecified Qualified Code(s): R10.10 - Upper abdominal pain, unspecified Constipation Qualifiers: Constipation type: other constipation type Qualified Code(s): K59.09 - Other constipation Condition: Stable Instructions: Abdominal Pain, ED Constipation Comments: Take MiraLAX as needed with the goal of 1 soft bowel movement daily. You may also take senna or Dulcolax for constipation. Make sure to drink plenty of hydrating fluids. You continue to experience abdominal pain I recommend following up with your surgeon Dr. Henley. Your CT today showed normal postoperative findings without any evidence of complications. Forms: PCP List Discharge Date/Time: 03/27/23 00:07
[2023-03-26 21:37] LABS: BASOPHILS % (AUTO) 0.6 %; EOSINOPHILS # (AUTO) 0.1 10^3/uL (0.0-0.7); HCT - HEMATOCRIT 41.2 % (37.0-47.0); HGB - HEMOGLOBIN 14.1 g/dL (12.0-16.0); LYMPHOCYTES # (AUTO) 1.3 10^3/uL (1.5-3.5); LYMPHOCYTES % (AUTO) 18.4 %; MEAN CORPUSCULAR HEMOGLOBIN 30.9 pg (27.0-31.0); MEAN CORPUSCULAR HGB CONC 34.2 g/dL (32.0-36.0); MEAN CORPUSCULAR VOLUME 90.4 fL (81.0-99.0); MEAN PLATELET VOLUME 10.5 fL (7.9-10.8); MONOCYTES # (AUTO) 0.6 10^3/uL (0.0-1.0); NEUTROPHILS # (AUTO) 5.2 10^3/uL (1.5-6.6); NEUTROPHILS % (AUTO) 71.7 %; PLT - PLATELET COUNT 272 10^3/uL (130-450); RED BLOOD COUNT 4.56 10^6/uL (4.20-5.40); RED CELL DISTRIBUTION WIDTH 12.3 % (12.0-15.0); WHITE BLOOD COUNT 7.2 x10^3/uL (4.8-10.8)
[2023-03-26 21:58] LABS: HCG,QUALITATIVE BLOOD NEGATIVE
[2023-03-26 22:01] LABS: ALBUMIN 3.8 g/dL (3.2-5.5); BILIRUBIN,TOTAL 0.2 mg/dL (0.2-1.0); CALCIUM 8.7 mg/dL (8.5-10.3); CREATININE 0.8 mg/dL (0.4-1.0); POTASSIUM 3.5 mmol/L (3.5-5.0); TOTAL PROTEIN 7.5 g/dL (6.7-8.2)
--- NOTE | 2023-03-26 23:37 | CT Report ---
PROCEDURE: ABDOMEN/PELVIS W INDICATIONS: MIDEPIGASTRIC PAIN 10DAY POSTOP YOLY CONTRAST: Nonionic intravenous iodinated contrast, no oral contrast Optiray 320 100ml TECHNIQUE: After the administration of intravenous contrast, 5 mm thick sections acquired from the diaphragms to the symphysis. 5 mm thick coronal and sagittal reformats were acquired. For radiation dose reducti on, the following was used: automated exposure control, adjustment of mA and/or kV according to christiano ent size. COMPARISON: 04/15/[address] FINDINGS: Image quality: Excellent. Lung bases and heart: Unremarkable. Liver: No solid mass. Gallbladder and biliary tree: Prior cholecystectomy. A small amount of fluid is seen at the gallbladd er fossa adjacent to the surgical clips, a common finding in the post operative. After cholecystectom y. Spleen: No splenomegaly. Pancreas: No pancreatic ductal dilation. Adrenals: No adrenal nodule. Kidneys and ureters: No hydronephrosis. No renal cystic lesion which requires follow up. No solid mas s. Bowel and peritoneum: No bowel distension. No pathologic free fluid. Lymph nodes: No central or retroperitoneal adenopathy. Vessels: No infrarenal aortic aneurysm. PELVIS Reproductive organs: Unremarkable. Bladder: No abnormal wall thickening, accounting for underdistension. Pelvic lymph nodes: No pelvic adenopathy by size criteria. Bones: No aggressive osseous abnormality. Other: No significant ventral or inguinal hernia. IMPRESSION: Minimal postcholecystectomy fluid at the gallbladder fossa, where surgical clips indicate prior yoly cystectomy. No abscess is found. There is no evidence of significant free fluid within the peritoneal space that would be expected in the setting of bile leak. Reviewed by: Silver Capone MD on 03/26/2023 11:36 PM PDT Approved by: Silver Capone MD on 03/26/2023 11:36 PM PDT Station ID: [id number]
[2023-03-27 00:13] VITALS: BP 120/86; O2SAT 98
[2023-03-27] MEDS ORDERED: IOVERSOL 320 100 ML VIAL IVP ONE (02:57)
== END 2023-03-27 00:07 | disposition home or self-care (01) ==
LOC: ED 20:47
DX: R10.10 Upper abdominal pain, unspecified (principal); K59.09 Other constipation; Z90.49 Acquired absence of other specified parts of digestive tract
CPT/HCPCS: 36415; 74177; 80053; 83690; 84703; 85025; 93005; 96374; 96375; 99283; 99284; Q9967

== ENCOUNTER 2023-08-25 06:54 | Outpatient (CLI) | payer OTHER ==
--- NOTE | 2023-08-25 18:31 | XRAY Report ---
PROCEDURE: Foot 1-2V RT INDICATIONS: CONTUSION OF RIGHT FOOT TECHNIQUE: 2 views of the foot were acquired. COMPARISON: None. FINDINGS: Bones: No fractures or dislocations. Normal alignment on nonweightbearing view. No suspicious bony l esions. Soft tissues: No suspicious soft tissue calcifications or masses. Tiny Achilles calcaneal enthesophy te. Mild soft tissue swelling in the forefoot. IMPRESSION: No acute bony abnormality. Reviewed by: Grey Velazquez MD on 08/25/2023 6:30 PM PST Approved by: Grey Velazquez MD on 08/25/2023 6:30 PM PST Station ID: [id number]
== END 2023-08-25 06:55 | disposition home or self-care (01) ==
LOC: DI 06:54
PROVIDERS: ATTEND Nurse Practitioner
DX: S90.31XA Contusion of right foot, initial encounter (principal)

== ENCOUNTER 2023-12-02 10:06 | Outpatient (CLI) | payer OTHER ==
--- NOTE | 2023-12-05 10:47 | Mammography Report ---
BILATERAL DIGITAL SCREENING MAMMOGRAM 3D/2D: 12/02/2023 CLINICAL: Routine screening. Comparison is made to exam dated: 08/20/2022 mammogram - [facility]. Both breasts are heterogeneously dense, which may obscure small masses (category c / 51-75% glandular tissue). No significant masses, calcifications, or other findings are seen in either breast. There has been no significant interval change. IMPRESSION: NEGATIVE There is no mammographic evidence of malignancy. A 1 year screening mammogram is recommended. Based on the Tyrer Cuzick model (a risk assessment model) the patient's lifetime risk is 18.6% and he r 10 year risk is 3.5%. According to the ACR, ACS, and NCCN guidelines, an annual breast MRI exam bharat ng with mammogram is recommended if the patient's lifetime risk is 20% or greater. This exam was interpreted at Station ID: [id number]. NOTE: For mammograms, a report in lay terms will be sent to the patient. Approximately 15% of breast malignancies will not be visualized mammographically. In the management of a palpable breast mass, a negative mammogram must not discourage biopsy of a clinically suspicious lesion. Electronically Signed By: José Miguel flores/bethel:12/02/2023 11:02:30 letter sent: No_Letter ACR BI-RADS Category 1: Negative 3341F PARENCHYMAL PATTERN: (D) - The breast(s) demonstrate(s) heterogeneously dense fibroglandular donovan vergara. BI-RADS CATEGORY: (1) - 1 RECOMMENDATION: (ANNUAL) - Recommend routine annual screening mammography. [id number] 1 year screening LATERALITY: (B)
== END 2023-12-02 10:07 | disposition home or self-care (01) ==
LOC: DI 10:06
DX: Z12.31 Encounter for screening mammogram for malignant neoplasm of breast (principal); R92.333 Mammographic heterogeneous density, bilateral breasts

== ENCOUNTER 2024-01-05 07:48 | Outpatient (CLI) | payer OTHER ==
[2024-01-05 08:00] LABS: BASOPHILS # (AUTO) 0.1 10^3/uL (0.0-0.1); BASOPHILS % (AUTO) 0.8 %; EOSINOPHILS # (AUTO) 0.3 10^3/uL (0.0-0.7); EOSINOPHILS % (AUTO) 4.6 %; HCT - HEMATOCRIT 41.7 % (37.0-47.0); HGB - HEMOGLOBIN 14.3 g/dL (12.0-16.0); LYMPHOCYTES # (AUTO) 1.5 10^3/uL (1.5-3.5); LYMPHOCYTES % (AUTO) 20.8 %; MEAN CORPUSCULAR HGB CONC 34.3 g/dL (32.0-36.0); MEAN CORPUSCULAR VOLUME 90.3 fL (81.0-99.0); MEAN PLATELET VOLUME 10.7 fL (7.9-10.8); MONOCYTES # (AUTO) 0.6 10^3/uL (0.0-1.0); MONOCYTES % (AUTO) 8.6 %; NEUTROPHILS # (AUTO) 4.6 10^3/uL (1.5-6.6); NEUTROPHILS % (AUTO) 65.1 %; PLT - PLATELET COUNT 207 10^3/uL (130-450); RED BLOOD COUNT 4.62 10^6/uL (4.20-5.40); RED CELL DISTRIBUTION WIDTH 13.9 % (12.0-15.0); WHITE BLOOD COUNT 7.1 x10^3/uL (4.8-10.8)
[2024-01-05 08:17] LABS: ALBUMIN 3.9 g/dL (3.2-5.5); ALBUMIN/GLOBULIN RATIO 1.4 (1.0-2.2); ALKALINE PHOSPHATASE 64 IU/L (42-121); ALT ALANINE AMINOTRANSFERASE 15 IU/L (10-60); AST ASPARTATE AMINOTRANSFERASE 14 IU/L (10-42); BILIRUBIN,TOTAL 0.5 mg/dL (0.2-1.0); BUN - BLOOD UREA NITROGEN 16 mg/dL (6-20); CARBON DIOXIDE - CO2 25 mmol/L (21-32); CHLORIDE 106 mmol/L (101-111); CHOL/HDL RATIO 3.8 (<4.4); CHOLESTEROL 155 mg/dL; CREATININE 0.9 mg/dL (0.6-1.3); GFR - MDRD 68 (>89); GLUCOSE 93 mg/dL (74-104); HDL CHOLESTEROL 41 mg/dL; LDL CHOLESTEROL,CALCULATED 93 mg/dL; LDL/HDL RATIO 2.3 (<4.4); POTASSIUM 3.9 mmol/L (3.5-4.5); SODIUM 137 mmol/L (135-145); TOTAL PROTEIN 6.7 g/dL (6.4-8.9); TRIGLYCERIDES 104 mg/dL (48-352); VLDL CHOLESTEROL 21 mg/dL
== END 2024-01-05 07:49 | disposition home or self-care (01) ==
LOC: LAB 07:48
PROVIDERS: ATTEND Physician Assistant
DX: Z00.00 Encounter for general adult medical examination without abnormal findings (principal); Z13.220 Encounter for screening for lipoid disorders
CPT/HCPCS: 36415; 80053; 80061; 83721; 85025